=== PATIENT | female | born 2005 | race Caucasian/White ===

== ENCOUNTER 2024-04-26 00:09 | Emergency (ER) | payer SELFPAY ==
[~2024-04-26] VITALS: Ht 165.1 cm; Wt 47.6 kg
[2024-04-26 00:11] VITALS: BP 101/73; PULSE 61; RESP 16; TEMP 98.2
[2024-04-26 02:08] VITALS: TEMP 98.2
[2024-04-26 04:24] VITALS: BP 101/55; PULSE 59; RESP 14; O2SAT 98
== END 2024-04-26 04:36 | disposition home or self-care (01) ==
LOC: MED 00:09
DX: F10.129 Alcohol abuse with intoxication, unspecified (principal); Y90.9 Presence of alcohol in blood, level not specified
CPT/HCPCS: 99283